=== PATIENT | male | born 1935 | race Caucasian/White ===

== ENCOUNTER 2022-06-12 09:47 | Inpatient (IN) | payer MEDICARE, OTHER ==
[2022-06-12] VITALS (37 sets, daily range): BP systolic 42–164; BP diastolic 18–81
[~2022-06-12] VITALS: Ht 172.7 cm; Wt 70.8 kg
[2022-06-12] MEDS ORDERED: VANCOMYCIN 1 GM in IV D5W 250 ML IV ONE (10:00)
[2022-06-12] MEDS ORDERED: PIPERACILLIN /TAZOBACTAM 3.375 G in IV D5W 50 ML IV ONE (10:00)
[2022-06-12] MEDS ORDERED: IV NS 0.9% 1,000 ML BAG IV ONE (10:00)
--- NOTE | 2022-06-12 10:00 | NUR ---
biba having abdominal pain , staff from [facility] said that he is not very compliant to pain medication but patient denies it . on 4L/min 97% at this moment. heart rate is 130 posible afib rvr. made aware .
--- NOTE | 2022-06-12 10:10 | NUR ---
EMT AT BEDSIDE FOR EKG
--- NOTE | 2022-06-12 10:15 | NUR ---
blood/urine sample obtained sent to lab
[2022-06-12] MEDS ORDERED: ACETAMINOPHEN 650 MG/SUPP.RECT RC ONE ×2 (10:22→10:30)
--- NOTE | 2022-06-12 10:22 | NUR ---
COVID SWAB COLLECTED AND SENT TO LAB
--- NOTE | 2022-06-12 10:25 | NUR ---
MOVE SHEET SUBMITTED.
--- NOTE | 2022-06-12 10:39 | NUR ---
URINE SAMPLE OBTAINED
--- NOTE | 2022-06-12 10:40 | NUR ---
X-RAY AT BEDSIDE
[2022-06-12 10:42] LABS: HEMATOCRIT 55 % (39-51); HEMOGLOBIN 17.6 g/dL (13.5-17.5); LYMPHOCYTES # (AUTO) 0.6 K/uL (0.8-4.8); LYMPHOCYTES % (AUTO) 3.4 % (20.0-44.0); MEAN CORPUSCULAR HGB CONC 32 g/dl (31.0-36.0); MEAN CORPUSCULAR VOLUME 98 fL (80-96); MONOCYTES # (AUTO) 0.7 K/uL (0.1-1.30); MONOCYTES % (AUTO) 4.2 % (2.0-12.0); NEUTROPHILS % (AUTO) 92.4 % (43.0-81.0); PLATELET COUNT (AUTO) 241 K/uL (150-450); WHITE BLOOD COUNT (AUTO) 17.4 K/uL (4.3-11.0)
--- NOTE | 2022-06-12 10:58 | NUR ---
RAPID FLU SWAB OBTAINED
[2022-06-12] MEDS ORDERED: AMIN30LI2 PO (11:08)
[2022-06-12] MEDS ORDERED: ACET-868 PO (11:08)
[2022-06-12] MEDS ORDERED: APIX5TAB PO (11:08)
[2022-06-12] MEDS ORDERED: LEVO25TA7 PO (11:08)
[2022-06-12] MEDS ORDERED: NA P133E RC (11:08)
[2022-06-12] MEDS ORDERED: DOCU-141 PO (11:08)
[2022-06-12] MEDS ORDERED: FAMO20TA8 PO (11:08)
[2022-06-12] MEDS ORDERED: OLOP2.5D12 EACHEYE (11:08)
[2022-06-12] MEDS ORDERED: METO25TA3 PO (11:08)
[2022-06-12] MEDS ORDERED: SIMV10TA98 PO (11:08)
[2022-06-12] MEDS ORDERED: BISA10SU11 RC (11:08)
[2022-06-12] MEDS ORDERED: ACET-2605 PO (11:08)
[2022-06-12] MEDS ORDERED: METF-440 PO (11:08)
[2022-06-12] MEDS ORDERED: CALC-1026 PO (11:08)
[2022-06-12] MEDS ORDERED: ASCO-352 PO (11:08)
[2022-06-12] MEDS ORDERED: SENN-261 PO (11:08)
[2022-06-12] MEDS ORDERED: MULT-447 PO (11:08)
[2022-06-12] MEDS ORDERED: ZINC50TA65 PO (11:08)
[2022-06-12] MEDS ORDERED: OXYC10TA59 PO (11:08)
[2022-06-12 11:10] LABS: CALCIUM, SERUM 8.9 mg/dL (8.5-10.1); CARBON DIOXIDE 18 mmol/L (21-32); CHLORIDE 102 mmol/L (98-107); GLUCOSE 232 mg/dL (74-106); POTASSIUM 4.9 mmol/L (3.5-5.1); SODIUM SERUM 141 mmol/L (136-145); UREA NITROGEN, BLOOD 25 mg/dL (7-18)
[2022-06-12] MEDS ORDERED: IOHEXOL-300 100 ML VIAL IV ONE (11:22)
[2022-06-12 11:24] LABS: ALANINE AMINOTRANSFERASE 10 U/L (12-78); ALKALINE PHOSPHATASE 69 U/L (46-116); ASPARTATE AMINOTRANSFERASE 16 U/L (15-37); TOTAL PROTEIN, SERUM 7.1 g/dL (6.4-8.2)
--- NOTE | 2022-06-12 11:30 | NUR ---
PATIENT TRANSPORTED FOR CT
--- NOTE | 2022-06-12 11:33 | NUR ---
LACTIC ACID 7.6 PER LAB. MADE AWARE
--- NOTE | 2022-06-12 11:56 | NUR ---
IV ZOSYN STARTED AT 1030, COMPLETED AT 1100
--- NOTE | 2022-06-12 11:57 | NUR ---
PATIENT RETURNED TO UNIT
--- NOTE | 2022-06-12 12:36 | NUR ---
Patient refused NG tube insertion, risks of not having tube inserted explained x3, patient again refused. MD made aware and spoke with patient, patient again refused NG tube insertion. Patient A/O x3, able to make own medical decisions.
--- NOTE | 2022-06-12 12:49 | NUR ---
GOT BED 253 ADMITTING INFORMED.
--- NOTE | 2022-06-12 13:34 | NUR ---
Report given to ELLEN Harris
--- NOTE | 2022-06-12 14:12 | NUR ---
Patient transferred to 253, all care endorsed to ELLEN Harris
[2022-06-12] MEDS ORDERED: Z GUARD REMEDY 4 OZ OINT TP PRN (14:30)
[2022-06-12] MEDS ORDERED: SENNOSIDES 8.6 MG TABLET PO PRN (14:30)
[2022-06-12] MEDS ORDERED: HYDROCODONE/APAP 5/325MG TABLET PO PRN (14:30)
[2022-06-12] MEDS ORDERED: AMIODARONE 150 MG in IV D5W 100 ML IV ONE (14:30)
[2022-06-12] MEDS ORDERED: AMIODARONE 900 MG in IV D5W 482 ML IV PRN (14:30)
[2022-06-12] MEDS ORDERED: MAGNESIUM HYDROXIDE 30 ML UDC PO PRN (14:30)
[2022-06-12] MEDS ORDERED: ACETAMINOPHEN 325 MG TABLET PO PRN ×2 (14:30→15:00)
[2022-06-12] MEDS ORDERED: BISACODYL SUPP (10 MG) 10 MG/SUPP.RECT SUPP.RECT RC PRN (14:30)
[2022-06-12] MEDS ORDERED: ONDANSETRON HCL/PF 4 MG/2 ML VIAL IVP PRN (14:30)
[2022-06-12] MEDS ORDERED: ZOLPIDEM TARTRATE 5 MG TABLET PO PRN (14:30)
[2022-06-12] MEDS ORDERED: MAG HYDROX/AL HYDROX/SIMETH 30 ML UDC PO PRN (14:30)
[2022-06-12] MEDS: MORPHINE SULFATE INJ 2 MG/ML DISP.SYRIN IV PRN ×3 (14:33→23:25)
--- NOTE | 2022-06-12 14:39 | NUR ---
SERVICER COIN MACHINES Note Patient was admitted to ICU for hypotension and atrial fibrillation with RVR, transported to the unit at 14:02 with RN and EMT's accompany. Patient's GCS [id number], alert and oriented X4. diversional therapist's assistant showed AF with HR 150/min. BP 92/47mmHg. SpO2 95% with 2L oxygen(poor waveform as patient is constantly moving). Patient complained of severe pain over stomach and abdomen. Clarified with NETWORK STRATEGIST Elías about the order of morphine and hydrocodone as they will reduce peristalsis of intestines. Elías said that we would address his pain first. IV morphine was administered and would monitor effectiveness. WIth respect to low blood pressure abdominal distension, told patient about the need for a berry and an NGT and he refused both interventions.
[2022-06-12] MEDS ORDERED: ACETAMINOPHEN ES 500 MG TABLET PO PRN (15:00)
[2022-06-12] MEDS ORDERED: NA PHOS,M-B/NA PHOS,DI-BA 1 EA ENEMA RC PRN (15:00)
[2022-06-12] MEDS: NOREPINEPHRINE 8 MG in IV NS 0.9% 242 ML IV PRN ×2 (15:09→23:10)
[2022-06-12] MEDS: PANTOPRAZOLE 40 MG VIAL IV SCH (15:26)
--- NOTE | 2022-06-12 16:15 | NUR ---
MACHINE DESIGN CHECKER Note Patient's oximetry kept showing desaturation, noted discrepancy between the pulse rate obtained from oximetry and the cardiac leads. During moments when the saturation was captured correctly, it showed roughly 93-95%. Changed the oximeter already but the waveform is still bad. Advised patient not to move frequently as well.
[2022-06-12] MEDS: IV NS 0.9% 1,000 ML IV SCH (16:30)
--- NOTE | 2022-06-12 17:23 | NUR ---
STOCK WETTER NOTE Asked patient about his wish for life-saving arrangements, patient said that he wished not to be intubated or resuscitated. Called patient's nephew Escobar(who was not at home) and Escobar's daughter answered the phone. Informed her about patient's admission to the hospital and brief condition. Inquired about patient's previous expression of life-saving measures arrangements, and she confirmed that patient opted for DNI&DNR previously. Informed PRESETTER OPERATOR Elías, and code status is updated.
[2022-06-12] MEDS: DOCUSATE SODIUM 100 MG CAPSULE PO SCH (17:48)
[2022-06-12] MEDS: APIXABAN 2.5 MG TABLET PO SCH (17:48)
[2022-06-12] MEDS: CALCIUM CARBONATE (1250) 500 MG TABLET PO SCH (17:48)
--- NOTE | 2022-06-12 17:56 | NUR ---
FOLDED CLOTH TAPER NOTE Gave patient sips of water and assess for aspiration risk. Patient have mild coughing with large sips of thin liquid, but no choking noted.
[2022-06-12] MEDS: OLOPATADINE HCL 0.1% OPHTH BOTTLE EACHEYE SCH (18:04)
[2022-06-12] MEDS: BLOOD SUGAR DIAGNOSTIC 1 EACH STRIP IN SCH ×2 (18:05→22:05)
[2022-06-12] MEDS: PIPERACILLIN /TAZOBACTAM 3.375 G in IV D5W 50 ML IV SCH ×2 (18:06→23:28)
[2022-06-12] MEDS: INSULIN REGULAR, HUMAN 100 UNIT/ML 3 ML VIAL SQ PRN ×2 (18:07→22:05)
[2022-06-12] MEDS: SIMVASTATIN 10 MG TABLET PO SCH (21:42)
--- NOTE | 2022-06-12 21:44 | NUR ---
2100 po meds held. pt with large amounts of phlegm potential for aspiration .suction prn
[2022-06-13] VITALS (87 sets, daily range): BP systolic 57–152; BP diastolic 14–104
--- NOTE | 2022-06-13 01:29 | NUR ---
RT NOTE ATTEMPTED TO NASOTRACHEAL SUCTION PATIENT. NO SECRETIONS NOTED. ATTEMPTED 4 TIMES WITH PATIENT'S STRONG COUGH. RN @ BEDSIDE. WILL CONTINUE TO MONITOR CLOSELY.
[2022-06-13] MEDS ORDERED: LORAZEPAM INJ 2 MG/ML VIAL IV PRN (01:30)
[2022-06-13] MEDS: IV NS 0.9% 1,000 ML IV SCH (02:22)
[2022-06-13] MEDS: NOREPINEPHRINE 8 MG in IV NS 0.9% 242 ML IV PRN ×3 (04:41→07:19)
[2022-06-13] MEDS: PIPERACILLIN /TAZOBACTAM 3.375 G in IV D5W 50 ML IV SCH ×4 (05:09→23:51)
[2022-06-13 05:12] LABS: BASOPHILS % (AUTO) 0.1 % (0.0-2.0); HEMATOCRIT 48 % (39-51); HEMOGLOBIN 15.2 g/dL (13.5-17.5); LYMPHOCYTES # (AUTO) 1.6 K/uL (0.8-4.8); LYMPHOCYTES % (AUTO) 9.2 % (20.0-44.0); MEAN CORPUSCULAR HGB CONC 32 g/dl (31.0-36.0); MEAN CORPUSCULAR VOLUME 99 fL (80-96); MONOCYTES # (AUTO) 1.2 K/uL (0.1-1.30); NEUTROPHILS # (AUTO) 14.8 K/uL (1.8-8.9); NEUTROPHILS % (AUTO) 83.7 % (43.0-81.0); PLATELET COUNT (AUTO) 261 K/uL (150-450); WHITE BLOOD COUNT (AUTO) 17.7 K/uL (4.3-11.0)
[2022-06-13 05:37] LABS: CALCIUM, SERUM 7.6 mg/dL (8.5-10.1); CARBON DIOXIDE 15 mmol/L (21-32); CHLORIDE 105 mmol/L (98-107); CREATININE 2.6 mg/dL (0.6-1.3); GLUCOSE 157 mg/dL (74-106); MAGNESIUM 1.6 mg/dL (1.8-2.4); PHOSPHORUS 5.8 mg/dL (2.5-4.9); POTASSIUM 5.6 mmol/L (3.5-5.1); SODIUM SERUM 139 mmol/L (136-145); UREA NITROGEN, BLOOD 34 mg/dL (7-18)
[2022-06-13 05:49] LABS: CHOLESTEROL 53 mg/dL (<200); HDL CHOLESTEROL 52 mg/dL (40-60); LDL 14 mg/dL (0-99); THYROID STIMULATING HORMONE 8.394 uIU/mL (0.358-3.74); TRIGLYCERIDES 47 mg/dL (30-150)
--- NOTE | 2022-06-13 05:50 | NUR ---
2325 -morphine dose in MAY NOT GIVEN. ATTEMPTED TO CHART REASSESSMENT OF THE DOSE GIVEN @ 5975.CHARGE NURSE Ed made aware of charting error
[2022-06-13] MEDS: LEVOTHYROXINE SODIUM 25 MCG TABLET PO SCH (07:30)
--- NOTE | 2022-06-13 07:30 | NUR ---
RN OPENING NOTE PT RECEIVED IN BED WITH HOB >30 DEGREES. PT IS ON SIMPLE MASK 8L O2 SAT 95%. PT IS A/OX2; AFIB AT THIS TIME INFUSING WITH AMIODARONE @ 0.5. PT IS ON FULL LIQUID DIET, BUT WILL HOLD PO MEDS DUE TO PT BEING CONFUSED WILL PUT IN NG. IV ACCESS L UA MIDLINE INFUSING WITH AMIODARONE AND LEVO @0.65. BED IS LOCKED IN LOWEST POSITION AND ALL HOSPITAL SAFETY MEASURES ARE IN PLACE WILL CONTINUE TO MONITOR THIS SHIFT.
[2022-06-13] MEDS ORDERED: IV NS 0.9% 1,000 ML IV PRN (07:51)
--- NOTE | 2022-06-13 08:00 | NUR ---
RN NOTE: IV NS PER MD, STOP NS INFUSION
[2022-06-13] MEDS: MULTIVITAMINS,THERAGRAN 1 UDTAB TABLET PO SCH (09:00)
[2022-06-13] MEDS: METOPROLOL SUCCINATE 25 MG TAB.SR.24H PO SCH (09:00)
[2022-06-13] MEDS: DOCUSATE SODIUM 100 MG CAPSULE PO SCH ×2 (09:00→15:56)
[2022-06-13] MEDS: ASCORBIC ACID 500 MG TABLET PO SCH (09:00)
[2022-06-13] MEDS: PROSOURCE / PROSTAT (PYXIS) 30 ML UDC PO SCH (09:00)
[2022-06-13] MEDS: ZINC SULFATE 220 MG CAPSULE PO SCH (09:00)
[2022-06-13] MEDS: APIXABAN 2.5 MG TABLET PO SCH ×2 (09:00→10:23)
--- NOTE | 2022-06-13 09:00 | NUR ---
RN NOTE: NG TUBE PLACEMENT UNABLE TO PLACE NG TUBE IN PT AND PT CONTINUES TO BE CONFUSED, WILL HOLD PO MEDS PER PROVIDER
[2022-06-13] MEDS: BLOOD SUGAR DIAGNOSTIC 1 EACH STRIP IN SCH ×4 (09:02→23:00)
[2022-06-13] MEDS: PANTOPRAZOLE 40 MG VIAL IV SCH (09:03)
[2022-06-13] MEDS: OLOPATADINE HCL 0.1% OPHTH BOTTLE EACHEYE SCH ×2 (09:03→17:45)
[2022-06-13] MEDS: INSULIN REGULAR, HUMAN 100 UNIT/ML 3 ML VIAL SQ PRN ×4 (09:14→23:00)
[2022-06-13] MEDS: NOREPINEPHRINE 32 MG in IV NS 0.9% 250 ML IV PRN ×2 (10:11→18:00)
[2022-06-13 11:07] LABS: BAND % (MANUAL) 34 % (0.0-5.0); LYMPHOCYTES % (MANUAL) 12 % (16-48); METAMYELOCYTES % 1 % (0-0); MONOCYTES % (MANUAL) 6 % (0-11.0); MYELOCYTES % 1 % (0-0); NEUTROPHILS % (MANUAL) 46 (42-76)
[2022-06-13] MEDS ORDERED: Magnesium 1GM/D5W 100ML PREMIX 100 ML IV SCH (12:00)
[2022-06-13] MEDS ORDERED: SODIUM POLYSTYRENE SULF. PWD 15 GM UDC PO ONE (13:30)
[2022-06-13] MEDS: CALCIUM CARBONATE (1250) 500 MG TABLET PO SCH (15:56)
--- NOTE | 2022-06-13 15:58 | NUR ---
RN NOTE: NG TUBE PLACEMENT UNABLE TO PLACE NG TUBE IN PT AND PT CONTINUES TO BE CONFUSED, WILL HOLD PO MEDS PER PROVIDER.
--- NOTE | 2022-06-13 18:51 | NUR ---
RN CLOSING NOTE PT IN BED WITH HOB >30 DEGREES. PT IS ON BIPAP MASK O2 SAT 91%. PT IS A/OX1. PT IS NPO EXCEPT MEDS MULTIPLE ATTEMPTS TO PLACE NG TUBE UNSUCCESSFUL; PROVIDER IS AWARE AND HOLDING PO MEDS. IV ACCESS L UA MIDLINE INFUSING WITH LEVO @0.7. BED IS LOCKED IN LOWEST POSITION AND ALL HOSPITAL SAFETY MEASURES ARE IN PLACE WILL ENDORSE TO BASEBALL SCOUT NURSE FOR NAY.
[2022-06-13] MEDS: DEXTROSE 50%-WATER 50 ML DISP.SYRIN IV PRN (19:41)
--- NOTE | 2022-06-13 19:45 | NUR ---
SPORTS MEDICINE PHYSICIAN OPENING NOTE RECEIVED PT IN BED, HOB INCREASED TO 30 DEGREES. ON BIPAP, O2 SAT 89-90%. PT IS RESPONSIVE TO NAME, STILL NOTED AGITATED AND VREY CONFUSED. IV ACCESS ON LT WRIST#20G AND ОЛЬГА MIDLINE INTACT AND PATENT. NO S/S OF INFILTRATIONS. RUNNING LEVOPHED AT 0.7MCG/KG/MIN. NO FACIAL GRIMACING NOTED. ALL SAFETY MEASURES IN PLACE. BED IN LOWEST POSITION AND LOCKED. SIDE RAILS UP X3, BILATERAL SOFT RESTRAINTS ON. PLACE CALL LIGHT WITH IN REACH. WILL CONTINUE TO MONITOR.
--- NOTE | 2022-06-13 19:58 | NUR ---
RN NOTES: PT'S BLOOD SUGAR ONLY 49. D50 GIVEN. NOTIFIED LEO WATT. MENTIONED, PT DOESN'T HAVE ANY HYDRATION ORDER. PER PREVIOUS SHIFT, DR. LIU STOPPED THE BOLUS NS DUE TO CONGESTION. DR. BUI ORDER- KEPT PUSHING D50 WHEN IT'S NEED TO BE. NOTED AND CARRIED OUT.
[2022-06-13] MEDS ORDERED: BLOOD SUGAR DIAGNOSTIC 1 EACH STRIP IN SCH (20:00)
--- NOTE | 2022-06-13 20:37 | NUR ---
RN NOTES: PT'S BLOOD SUGAR INCREASED TO 63. NO S/S OF HYPER/HYPOGLYCEMIA. WILL CONTINUE TO MONITOR
[2022-06-13] MEDS: SIMVASTATIN 10 MG TABLET PO SCH (22:00)
--- NOTE | 2022-06-13 23:01 | NUR ---
RN NOTES: PT'S BLOOD SUGAR 82. NO COVERAGE NEEDED. NO S/S OF HYPER/HYPOGLYCEMIA. ZOCOR ON HOLD. PT APPEARED TO BE LETHARGIC. WILL CONTINUE TO MONITOR
[2022-06-14] VITALS (68 sets, daily range): BP systolic 58–127; BP diastolic 17–74
[2022-06-14] MEDS: NOREPINEPHRINE 32 MG in IV NS 0.9% 250 ML IV PRN ×2 (03:23→10:20)
--- NOTE | 2022-06-14 03:49 | NUR ---
RN NOTES: PT IS NOT RESPONSIVE WITH PAINFUL STIMULI. STILL DNR/DNI. WILL CONTINUE TO MONITOR
--- NOTE | 2022-06-14 04:15 | NUR ---
RN NOTES: PT'S BP CONSTANTLY DECREASING. BP- 63/37. HR- 131. LEVOPHED INCREASED TO 1 MCG/KG/MIN. NOTIFIED ARTURO WATT. IF HE WANTS TO ADD MORE PRESSORS? ORDER- PHENYLEPHRINE. NOTED AND CARRIED OUT.
[2022-06-14] MEDS: PIPERACILLIN /TAZOBACTAM 3.375 G in IV D5W 50 ML IV SCH (05:10)
[2022-06-14 05:37] LABS: BASOPHILS % (AUTO) 0.1 % (0.0-2.0); HEMATOCRIT 48 % (39-51); HEMOGLOBIN 14.6 g/dL (13.5-17.5); LYMPHOCYTES # (AUTO) 1.4 K/uL (0.8-4.8); MEAN CORPUSCULAR HGB CONC 31 g/dl (31.0-36.0); MEAN CORPUSCULAR VOLUME 101 fL (80-96); MONOCYTES # (AUTO) 0.8 K/uL (0.1-1.30); MONOCYTES % (AUTO) 5.2 % (2.0-12.0); NEUTROPHILS # (AUTO) 13.2 K/uL (1.8-8.9); NEUTROPHILS % (AUTO) 85.7 % (43.0-81.0); PLATELET COUNT (AUTO) 223 K/uL (150-450); RED BLOOD CELL COUNT(AUTO) 4.75 MIL/uL (4.5-6.0); WHITE BLOOD COUNT (AUTO) 15.4 K/uL (4.3-11.0)
--- NOTE | 2022-06-14 05:41 | NUR ---
RN NOTES: LAB CALLED, PT'S POTASSIUM LEVEL 7.4. THEY ARE GOING TO REDRAW AGAIN.
[2022-06-14] MEDS: PHENYLEPHRINE 100 MG in IV NS 0.9% 240 ML IV PRN ×2 (06:02→15:48)
--- NOTE | 2022-06-14 06:10 | NUR ---
LIFT OPERATOR NOTES: STARTED AWILDA AT 0.5 MCG/KG/MIN. WILL CONTINUE TO MONITOR
[2022-06-14 06:27] LABS: CALCIUM, SERUM 7.6 mg/dL (8.5-10.1); CHLORIDE 103 mmol/L (98-107); CREATININE 3.5 mg/dL (0.6-1.3); GLUCOSE 64 mg/dL (74-106); MAGNESIUM 1.8 mg/dL (1.8-2.4); SODIUM SERUM 138 mmol/L (136-145); UREA NITROGEN, BLOOD 50 mg/dL (7-18)
[2022-06-14 06:35] LABS: CARBON DIOXIDE 7 mmol/L (21-32)
[2022-06-14 06:36] LABS: POTASSIUM 7.6 mmol/L (3.5-5.1)
--- NOTE | 2022-06-14 06:50 | NUR ---
RN NOTES: RECEIVED LAB RESULT. PT'S POTASSIUM LEVEL-7.6. CARBON DIOXIDE-7L. NOTIFIED DR. HO. ORDER- CALCIUM GLUCO 2 GM, BICARB ONE AMP PUSH, 10 UNITS REGULAR INSULIN, 2 D50 PUSHES TO FOLLOW JAIRO, 30 MG KATEXALATE. ORDER NOTED AND CARRIED OUT.
[2022-06-14] MEDS ORDERED: SODIUM POLYSTYRENE SULFONATE 15 G/60 ML BOTTLE PO ONE (07:00)
[2022-06-14] MEDS ORDERED: INSULIN REGULAR, HUMAN 100 UNIT/ML 3 ML VIAL SQ STA (07:00)
[2022-06-14] MEDS ORDERED: Calcium Gluconate 0.465 MEQ/ML VIAL IV ONE (07:00)
[2022-06-14] MEDS ORDERED: SODIUM BICARBONATE SYR 50 MEQ/50 ML DISP.SYRIN IV ONE ×2 (07:00→09:00)
[2022-06-14] MEDS ORDERED: DEXTROSE 50%-WATER 50 ML DISP.SYRIN IVP ONE (07:00)
[2022-06-14] MEDS: LEVOTHYROXINE SODIUM 25 MCG TABLET PO SCH (07:30)
--- NOTE | 2022-06-14 07:30 | NUR ---
RN OPENING NOTE PT RECEIVED IN BED ON BIPAP WITH ALL PRESCRIBED SETTINGS. PT IS A/OX1. PT CONTINUES TO BE NPO EXCEPT FOR MEDS. IV ACCESS L UA MIDLINE INFUSING WITH LEVO @1MCG; AWILDA @0.7MCG. BED IS LOCKED IN LOWEST POSITION X2 BEDRAILS UP AND ALL HOSPITAL SAFETY MEASURES ARE IN PLACE. WILL CONTINUE TO MONITOR THIS SHIFT.
[2022-06-14 07:52] LABS: ALBUMIN 2.2 g/dL (3.4-5.0); BILIRUBIN,DIRECT 1.2 mg/dL (0.0-0.2); BILIRUBIN,TOTAL 1.8 mg/dL (0.2-1.0); TOTAL PROTEIN, SERUM 5.5 g/dL (6.4-8.2)
--- NOTE | 2022-06-14 08:00 | NUR ---
RN NOTE: NG TUBE UNABLE TO PLACE NG TUBE AFTER 3 ATTEMPTS. UNABLE TO GIVE PO MEDS
[2022-06-14] MEDS: PANTOPRAZOLE 40 MG VIAL IV SCH (08:22)
[2022-06-14] MEDS: BLOOD SUGAR DIAGNOSTIC 1 EACH STRIP IN SCH ×2 (08:23→11:14)
[2022-06-14] MEDS: MULTIVITAMINS,THERAGRAN 1 UDTAB TABLET PO SCH (09:00)
[2022-06-14] MEDS: ZINC SULFATE 220 MG CAPSULE PO SCH (09:00)
[2022-06-14] MEDS: ASCORBIC ACID 500 MG TABLET PO SCH (09:00)
[2022-06-14] MEDS: APIXABAN 2.5 MG TABLET PO SCH (09:00)
[2022-06-14] MEDS ORDERED: Sodium Bicarbonate 150 MEQ in IV D5W 1,000 ML IV PRN (09:00)
[2022-06-14] MEDS: DOCUSATE SODIUM 100 MG CAPSULE PO SCH (09:00)
[2022-06-14] MEDS: OLOPATADINE HCL 0.1% OPHTH BOTTLE EACHEYE SCH (09:00)
[2022-06-14] MEDS: METOPROLOL SUCCINATE 25 MG TAB.SR.24H PO SCH (09:00)
[2022-06-14] MEDS: PROSOURCE / PROSTAT (PYXIS) 30 ML UDC PO SCH (09:00)
[2022-06-14] MEDS: HYDROCORTISONE SOD SUCCINATE 100 MG/2 ML VIAL IV SCH ×2 (09:05→13:41)
[2022-06-14] MEDS: DEXTROSE 50%-WATER 50 ML DISP.SYRIN IV PRN (09:51)
[2022-06-14] MEDS: INSULIN REGULAR, HUMAN 100 UNIT/ML 3 ML VIAL SQ PRN (11:15)
[2022-06-14] MEDS ORDERED: VASOPRESSIN INJ 40 UNIT in IV NS 0.9% 38 ML IV PRN (12:00)
[2022-06-14] MEDS ORDERED: PIPERACILLIN /TAZOBACTAM 2.25 G in IV D5W 50 ML IV SCH (13:00)
--- NOTE | 2022-06-14 13:31 | NUR ---
RN NOTE: PHONE CALL ATTEMPTED TO REACH PTS FAMILY, BUT WAS UNABLE TO MAKE CONTACT VIA TELEPHONE
[2022-06-14] MEDS ORDERED: NOREPINEPHRINE 32 MG in IV NS 0.9% 250 ML IV PRN (18:00)
--- NOTE | 2022-06-14 18:00 | NUR ---
RN NOTE: PT PATIENT UNRESPONSIVE TO STERNAL RUB, EKG SHOWING ASYSTOLE X2 LEADS CHARGE NURSE AWARE. MD NOTIFIED AND MADE AWARE.
--- NOTE | 2022-06-14 18:00 | NUR ---
EDGE TRIMMER MECHANIC PT DNR/DNI STATUS. FOUND PT ASYSTOLIC, APNEIC, AREFLEXIVE. PUPILS FIXED AND DILATED. PRONOUNCED AT 1800. WILL NOTIFY DR ALVARENGA WELL FAMILY.
--- NOTE | 2022-06-14 19:25 | NUR ---
RN NOTE: PHONE CALL THIS NURSED ATTEMPTED TO CONTACT PT SIBLINGS VIA TELEPHONE. NO CONTACT WAS MADE
--- NOTE | 2022-06-14 19:30 | NUR ---
RN NOTE: [facility] RECEIVED PHONE CALL FROM SILVIA WRIGHT [phone]. SILVIA WAS INFORMED THAT PATIENT AT 1800. SILVIA STATED THAT THERE ARE NO FAMILY LOCALLY TO THE PATIENT AND PT DID NOT HAVE MORTUARY ARRANGEMENTS. PT STATED THAT JOSIAH [facility]I IS IN CHARGE OF PATIENT'S FINANCES AND WILL CONTACT HIM. SILVIA STATED THAT PAULIE WHO WAS LISTED ON PATIENT'S FACE SHEET WAS AND JOSIAH IS PAULIE'S SON. SILVIA WAS PROVIDED WITH NURSE SAFETY PERSON NUMBER TO CONTACT IF NEEDED [phone].
--- NOTE | 2022-06-14 20:01 | NUR ---
RN NOTE: PT TRANSFERRED TO [facility] PT TRANSFERRED TO [facility] WITH NO BELONGINGS. PT DID NOT HAVE BELONGINGS WHEN ADMITTED TO [facility] PER BELONGING SHEET IN CHART.
[2022-06-15 09:08] LABS: ABG BASE EXCESS -26.6 mmol/L; ABG OXYGEN SATURATION 99.5 % (92.0-98.5); ABG PH 6.961 (7.350-7.450); ABG PO2 238.6 mmHg (75.0-100.0); AaDO2 456.4 mmHg; COHb 0.7 % (0.5-1.5); MetHb 0.3 % (0.0-1.5); O2Hb 98.5 % (94.0-97.0); SITE, ABG Right Radial
== END 2022-06-14 20:52 | DRG 871 ==
LOC: ER 09:47 → ICU 12:55
PROVIDERS: ADMIT Nurse Practitioner Acute Care
PROC: 05HA33Z Insertion of Infusion Device into Left Brachial Vein, Percutaneous Approach (ICD-10-PCS; 2022-06-12)
PROC: 5A09457 Assistance with Respiratory Ventilation, 24-96 Consecutive Hours, Continuous Positive Airway Pressure (ICD-10-PCS; principal; 2022-06-13)
DX: A41.9 Sepsis, unspecified organism (principal); G92.8 Other toxic encephalopathy; I50.33 Acute on chronic diastolic (congestive) heart failure; N17.0 Acute kidney failure with tubular necrosis; R65.21 Severe sepsis with septic shock; J96.01 Acute respiratory failure with hypoxia; J96.02 Acute respiratory failure with hypercapnia; I13.0 Hypertensive heart and chronic kidney disease with heart failure and stage 1 through stage 4 chronic kidney disease, or unspecified chronic kidney disease; E87.20 Acidosis, unspecified; M48.54XA Collapsed vertebra, not elsewhere classified, thoracic region, initial encounter for fracture; E44.0 Moderate protein-calorie malnutrition; J98.11 Atelectasis; K56.7 Ileus, unspecified; K55.9 Vascular disorder of intestine, unspecified; I48.91 Unspecified atrial fibrillation; K52.89 Other specified noninfective gastroenteritis and colitis; K80.20 Calculus of gallbladder without cholecystitis without obstruction; N18.9 Chronic kidney disease, unspecified; Z66 Do not resuscitate; Z20.822 Contact with and (suspected) exposure to COVID-19; K21.9 Gastro-esophageal reflux disease without esophagitis; E11.22 Type 2 diabetes mellitus with diabetic chronic kidney disease; E11.42 Type 2 diabetes mellitus with diabetic polyneuropathy; E11.43 Type 2 diabetes mellitus with diabetic autonomic (poly)neuropathy; E11.51 Type 2 diabetes mellitus with diabetic peripheral angiopathy without gangrene; Z79.84 Long term (current) use of oral hypoglycemic drugs; Z79.01 Long term (current) use of anticoagulants; Z79.899 Other long term (current) drug therapy; E78.5 Hyperlipidemia, unspecified; K56.41 Fecal impaction; E88.09 Other disorders of plasma-protein metabolism, not elsewhere classified; E03.9 Hypothyroidism, unspecified; E86.1 Hypovolemia; K31.84 Gastroparesis; E83.42 Hypomagnesemia; E86.0 Dehydration; E87.5 Hyperkalemia; I70.0 Atherosclerosis of aorta; N40.0 Benign prostatic hyperplasia without lower urinary tract symptoms; N13.9 Obstructive and reflux uropathy, unspecified; E11.649 Type 2 diabetes mellitus with hypoglycemia without coma
CPT/HCPCS: 31720; 36410; 36415; 36600; 71045-TC; 76705-TC; 76770-TC; 80048-TC; 80061-TC; 80076-TC; 82533; 82803-TC; 82962-TC; 83605-TC; 83735-TC; 83880; 84100-TC; 84443-TC; 84484-TC; 85025-TC; 85730-TC; 87040-TC; 87081-TC; 87086-TC; 87806; 93307-TC; 94799-TC; A4223; A4624; C9113; C9803; G0378; J0282; J0610; J1720; J1815; J2060; J2270; J2370; J2543; J3370; J3490; J7030; J7040; J7050; J7060; J7070; Q9967